=== PATIENT | female | born 1975 | race Caucasian/White ===

== ENCOUNTER 2017-10-28 09:34 | Outpatient (RCR) | payer OTHER ==
[~2017-10-28 09:34] MED LIST: CALCIUM 500500 M1 PO; CEPHALEXIN500 M1 PO; DOXYCYCLINE 10100 MG PO; EFFEXOR 3737.5 MG/TA PO; EFFEXOR100 MG PO; HEALTH CARE AM500 M3 PO; MULTIPLE VITAMI1 TA7 PO; NEXIUM 20MG20 MG PO; PRILOSEC 20MG20 MG PO; VITAMIN B121000 MC2 SL; VOLTAREN 50MG T50 MG PO
== END 2018-01-26 | disposition home or self-care (01) ==
LOC: WSOH
DX: Z77.21 Contact with and (suspected) exposure to potentially hazardous body fluids (principal); W46.1XXA Contact with contaminated hypodermic needle, initial encounter; Y93.F9 Activity, other caregiving; Y92.538 Other ambulatory health services establishments as the place of occurrence of the external cause; Y99.0 Civilian activity done for income or pay; Z79.899 Other long term (current) drug therapy

== ENCOUNTER 2018-02-03 18:26 | Outpatient (CLI) | payer MEDICAID ==
[~2018-02-03] VITALS: Ht 165.1 cm; Wt 104.1 kg
[2018-02-03] MEDS ORDERED: NATURAL IRON65 MG (18:45)
[2018-02-03] MEDS ORDERED: COLACE 100100 MG/CAP PO (18:46)
[2018-02-03 18:52] VITALS: BP 133/75; PULSE 81; TEMP 98.8
== END 2018-02-03 20:08 | disposition home or self-care (01) ==
LOC: LDRO 18:26 → LDR 18:44 → LDRO 20:08
DX: O42.913 Preterm premature rupture of membranes, unspecified as to length of time between rupture and onset of labor, third trimester (principal); Z3A.36 36 weeks gestation of pregnancy

== ENCOUNTER 2018-02-18 05:33 | Inpatient (IN) | payer MEDICAID ==
[~2018-02-18] VITALS: Ht 162.6 cm; Wt 107.3 kg
[2018-02-18] VITALS (19 sets, daily range): BP systolic 111–146; BP diastolic 53–87; PULSE 67–109; TEMP 97.7–98.7
--- NOTE | 2018-02-18 05:30 | NUR ---
PT ARRIVED TO THE UNIT AMBULATORY WITH 19 YO DAUGHTER. SROM AT 0445, MEC FLUID NOTED. PT IS 38.5 WEEKS, G2L1. PT STATES THIS BABY WILL BE GIVEN UP FOR ADOPTION TO HER SISTER WHO LIVES IN [place]. ADOPTION PAPERS ON UNIT. PT TO ROOM, CHANGED INTO GOWN, EFMX2 APPLIED, VS STABLE, SVE PERFORMED.
[~2018-02-18 05:33] MED LIST changes: +COLACE 100100 MG/CAP PO; +NATURAL IRON65 MG
[2018-02-18] MEDS ORDERED: PRENATAL PO (05:47)
--- NOTE | 2018-02-18 06:30 | NUR ---
pt requesting epidural. SVE:/-1. Bharat COVINGTON here and notified. 0640:Pt to a sitting up on side of bed. Bharat COVINGTON explained procedure. Epidural placed, test dose given at 0654. Pt tolerated well, see anesthesia notes. Unable to continuously monitor hearttones while pt sitting up. This nurse at bedside and monitors readjusted. Intermittent FHT's 120bmp. 0705:Dr Palmer called and updated on pt here and status. No new orders, will be here to evaluate.
[2018-02-18 06:49] LABS: BASO % 0.1 % (0.0-2.0); GRAN # 4.2 (1.4-6.5); GRAN % 62.3 % (42.2-75.2); HEMOGLOBIN 12.4 g/dl (12.5-16.0); LYMPH # 1.8 (1.2-3.4); LYMPH % 27.2 % (20.0-51.0); MEAN CELL VOLUME 87 fl (80.0-100.0); MEAN CORPUSCULAR HEMOGLOBIN 29 pg (27.0-31.0); MEAN CORPUSCULAR HGB CONC 34 g/dl (33.0-37.0); MEAN PLATELET VOLUME 12.4 fl (7.4-10.4); MONO # 0.6 (0.1-0.6); MONO % 9.2 % (1.7-9.3); PLATELET COUNT 145 K/mm3 (130-400); RED BLOOD COUNT 4.22 M/mm3 (4.10-5.30); REDCELL DISTRIBUTION WIDTH-CV 14.1 % (11.5-14.5)
[2018-02-18 06:56] LABS: HEMATOCRIT 36.8 % (37.0-47.0)
--- NOTE | 2018-02-18 07:25 | NUR ---
Pt feeling vaginal pressure. SVE: complete +1. 0735:Dr Palmer called, will be on her way to hospital for delivery. FHR reactive. Pt comfortable with epidural. 0755:Dr Palmer here and at bedside. Pt prepped for delivery. 0758:Pt begins to push with contrations. Pushes through 2 contractions. 0801:Spontaneous delivery of infant head and shoulder. Cord clamped and cut and in care of [facility] JEFFERSON. 2nd degree laceration repaired per physician. 0812:Spontaneous delivery of placenta. LR with pitocin infusing at 333ml/hr without difficulty. Placenta sent to pathology for meconium stained fluid. Fundus massaged, moderate to large amounts noted. Dr Palmer at bedside. 0817:0.2mg Methergine given IM to left thigh. 0820:800mcg cytotec given rectally per physician. See EMAR. Straight catheter done per physician. 0830:Fundus firm, bleeding now WNL. Dr Palmer at bedside evaluating. No new orders, will continue to monitor.
--- NOTE | 2018-02-18 09:40 | NUR ---
Assumed care of patient. Rests in bed, alert. Family at bedside.
--- NOTE | 2018-02-18 11:15 | NUR ---
Ambulates to the bathroom. Voids moderate amount of clear yellow urine. Ambulates to room 214, tolerates well.
--- NOTE | 2018-02-18 13:00 | NUR ---
Rests in bed, alert. Denies any needs at this time.
--- NOTE | 2018-02-18 21:00 | NUR ---
PT TOOK OWN EFFEXOR 100MG PO
[2018-02-19 03:39] VITALS: BP 110/56; PULSE 60; TEMP 98.4
[2018-02-19 06:30] VITALS: BP 132/79; PULSE 109; TEMP 98.1
--- NOTE | 2018-02-19 11:35 | NUR ---
deck worker met with patient and was present during the signing of the adoption paperwork. Patient is adopting her baby to her sister. Patient is coping well at this time. Copy of Declaration of Intention, consent of Parent or Guardian For Medical Treatment and Temporary Custody of Minor Child placed on the chart.
--- NOTE | 2018-02-19 11:46 | NUR ---
family service caseworker met with patient and completed Authorization of Release. This release was placed in baby's chart.
--- NOTE | 2018-02-19 19:00 | NUR ---
1900 DISMISS PAPERWORK DONE. WAITING TO EAT SUPPER AND THEN WILL GO HOME. 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 PT STATES SHE WILL COME BACK TO VISIT WHILE THEY ARE STILL HERE BUT WILL NOT BE STAYING A BOARDER PT. 2024 HOME PER AMB ACC BY FAMILY MEMBER.
== END 2018-02-19 20:25 | disposition home or self-care (01) | DRG 806 ==
LOC: LDRO 05:33 → OB 06:15 → LDR 06:15 → OB 14:54
PROVIDERS: Obstetrics & Gynecology; ADMIT Student in an Organized Health Care Education/Training Program
PROC: 10E0XZZ Delivery of Products of Conception, External Approach (ICD-10-PCS; principal; 2018-02-18)
PROC: 0KQM0ZZ Repair Perineum Muscle, Open Approach (ICD-10-PCS; 2018-02-18)
DX: O77.0 Labor and delivery complicated by meconium in amniotic fluid (principal); O72.1 Other immediate postpartum hemorrhage; Z37.0 Single live birth; Z3A.38 38 weeks gestation of pregnancy; O70.1 Second degree perineal laceration during delivery; O99.02 Anemia complicating childbirth; D50.9 Iron deficiency anemia, unspecified; O99.214 Obesity complicating childbirth; O99.824 Streptococcus B carrier state complicating childbirth; O99.844 Bariatric surgery status complicating childbirth; O99.344 Other mental disorders complicating childbirth; F32.9 Major depressive disorder, single episode, unspecified
CPT/HCPCS: J2210; J2540; J2590; J7120

== ENCOUNTER → 2018-05-04 | Outpatient (CLI) | payer MEDICAID ==
[~2018-05-04] MED LIST changes: +PRENATAL PO
== END ==
LOC: COL.RAD 16:52
DX: N83.202 Unspecified ovarian cyst, left side (principal); Z98.84 Bariatric surgery status
CPT/HCPCS: Q9967

== ENCOUNTER → 2019-08-31 | Outpatient (CLI) | payer MEDICAID | LOC: ZCOL.LAB 16:47 | DX: R53.83 Other fatigue (principal); R68.83 Chills (without fever); Z20.828 Contact with and (suspected) exposure to other viral communicable diseases ==